=== PATIENT | male | born 1975 | race Hispanic/Latino ===

== ENCOUNTER 2019-02-22 22:40 | Inpatient (IN) | payer OTHER | END 2019-02-25 14:24 | disposition home or self-care (01) | LOC: EDH 22:40 → 4CH 02-24 01:56 → EDHIP 02-23 04:58 | DX: N17.9 Acute kidney failure, unspecified (principal); I21.A1 Myocardial infarction type 2; M62.82 Rhabdomyolysis; E86.0 Dehydration ==